=== PATIENT | female | born 1935 | race Asian ===

== ENCOUNTER 2017-06-06 22:21 | Emergency (ER) | payer MEDICARE, OTHER ==
[~2017-06-06] VITALS: Ht 149.9 cm; Wt 53.5 kg
[~2017-06-06 22:21] MED LIST: ENAL5TAB92; LANS15CA21; LEVO300T2; LORA5CHW6; METO50TA7; PRAVACHOL; [UNRECOGNIZED DRUG - OTHER]
[2017-06-06 22:35] VITALS: BP 175/80
[2017-06-06 23:06] LABS: Basophils # (auto) 0 uL; Basophils % (auto) 0.4 % (0.0-2.0); Eosinophils # (auto) 0 uL; Eosinophils % (auto) 0.3 % (0.0-7.0); Hematocrit 40.8 % (36.0-46.0); Hemoglobin 13.6 g/dL (12.2-16.2); Lymphocytes # (auto) 1.7 uL; Lymphocytes % (auto) 26.1 % (10.0-50.0); Mean Corpuscular Hemoglobin 32.6 pg (28.0-32.0); Mean Corpuscular Hgb Conc. 33.5 g/dL (32.0-36.0); Mean Corpuscular Volume 97.3 fL (80.0-100.0); Monocytes # (auto) 0.3 uL; Monocytes % (auto) 4.5 % (0.0-12.0); Neutrophils # (auto) 4.4 uL; Neutrophils % (auto) 68.7 % (37.0-80.0); Nucleated Red Blood Cells % 0.1 %; Platelet Count (auto) 211 10^3/uL (140-450); Red Blood Cells 4.19 10^6/uL (4.0-5.20); Red Cell Distribution Width 13.7 % (11.8-14.3); White Blood Cell 6.3 10^3/uL (4.4-10.8)
[2017-06-06 23:26] LABS: Albumin 4.1 g/dL (3.4-5.0); BUN/Creatinine Ratio 20.5; Magnesium 2.6 mg/dL (1.6-2.6); Potassium 4.1 mmol/L (3.5-5.1)
[2017-06-06 23:32] LABS: Bilirubin, Total 0.3 mg/dL (0.2-1.0); Total Protein 8.2 g/dL (6.4-8.2)
== END 2017-06-07 05:12 | disposition left against medical advice (07) ==
LOC: ER 22:47 → EDUNIT# 22:47 → ER 06-07 05:12
DX: R00.2 Palpitations (principal); Z53.21 Procedure and treatment not carried out due to patient leaving prior to being seen by health care provider
CPT/HCPCS: 36415; 71010; 80053; 83735; 83880; 84484; 85025; J7030

== ENCOUNTER 2017-06-07 08:40 | Inpatient (IN) | payer MEDICARE, OTHER ==
[~2017-06-07] VITALS: Ht 142.2 cm; Wt 53.6 kg
[2017-06-07 10:37] LABS: Basophils # (auto) 0 uL; Basophils % (auto) 0.4 % (0.0-2.0); Eosinophils # (auto) 0 uL; Eosinophils % (auto) 0.1 % (0.0-7.0); Hematocrit 40.4 % (36.0-46.0); Hemoglobin 13.5 g/dL (12.2-16.2); Lymphocytes # (auto) 1.5 uL; Lymphocytes % (auto) 21.7 % (10.0-50.0); Mean Corpuscular Hemoglobin 32.2 pg (28.0-32.0); Mean Corpuscular Hgb Conc. 33.4 g/dL (32.0-36.0); Mean Corpuscular Volume 96.4 fL (80.0-100.0); Monocytes # (auto) 0.5 uL; Monocytes % (auto) 6.9 % (0.0-12.0); Neutrophils # (auto) 4.9 uL; Neutrophils % (auto) 70.9 % (37.0-80.0); Nucleated Red Blood Cells % 0.1 %; Platelet Count (auto) 220 10^3/uL (140-450); Red Blood Cells 4.19 10^6/uL (4.0-5.20); Red Cell Distribution Width 13.6 % (11.8-14.3); White Blood Cell 6.8 10^3/uL (4.4-10.8)
[2017-06-07 10:58] LABS: Albumin 3.9 g/dL (3.4-5.0); Bilirubin, Total 0.3 mg/dL (0.2-1.0); Calcium 8.5 mg/dL (8.5-10.1); Magnesium 2.9 mg/dL (1.6-2.6); Total Protein 8.1 g/dL (6.4-8.2)
[2017-06-07] MEDS ORDERED: LACTULOSE 20Gm/30ML SOLN PO PRN (16:30)
[2017-06-07] MEDS ORDERED: ACETAMINOPHEN 500 MG TAB PO PRN (16:30)
[2017-06-07] MEDS ORDERED: ASPirin 81 mg TAB PO ONE (16:30)
[2017-06-07] MEDS ORDERED: PROMETHAZINE HCL 25 MG/ML 1ML IV PRN (16:30)
[2017-06-07] MEDS ORDERED: TEMAZEPAM 15 MG CAP PO PRN (16:30)
[2017-06-07] MEDS ORDERED: LORazepam 0.5 MG TAB PO PRN (16:30)
[2017-06-07] MEDS ORDERED: HYDROcodone-ACET 5/325MG TAB PO PRN (16:30)
[2017-06-07] MEDS ORDERED: NITROGLYCERIN 0.4 MG SL TAB SL PRN (16:30)
[2017-06-07] MEDS ORDERED: MORPHINE SULF INJ 2 MG/ML SYRINGE 1ML IV PRN ×2 (16:30)
[2017-06-07 17:02] LABS: INR 0.95 (0.9-1.15); Partial Thromboplastin Time 19.2 sec (22.64-33.71); Prothrombin Time 10.3 sec (9.37-12.3)
[2017-06-07] MEDS: SODIUM CHLORIDE 0.9% 1,000 ML IV SCH (17:03)
[2017-06-07] MEDS: ATORVASTATIN 20 MG TAB PO SCH (23:02)
[2017-06-07] MEDS: METOPROLOL TARTRATE 25 MG TAB PO SCH (23:03)
[2017-06-07 23:54] LABS: Urine Bacteria NONE SEEN /hpf (None Seen); Urine Blood 1+ /uL (Negative); Urine Specific Gravity 1.006 (1.001-1.035); Urine WBC 1 /hpf (0 - 5)
[2017-06-08 00:04] LABS: Alcohol, Urine < 3.0 mg/dL (0-5); Amphetamine Screen, Urine NEGATIVE (NEGATIVE); Barbiturate Scree,Urine NEGATIVE (NEGATIVE); Benzodiazephine Screen, Urine NEGATIVE (NEGATIVE); Cannabinoid Screen, Urine NEGATIVE (NEGATIVE); Cocaine Screen, Urine NEGATIVE (NEGATIVE); Opiate Scree,Urine NEGATIVE (NEGATIVE); Phencyclidine Screen, Urine NEGATIVE (NEGATIVE)
[2017-06-08] MEDS: SODIUM CHLORIDE 0.9% 1,000 ML IV SCH ×2 (06:04→17:43)
[2017-06-08] MEDS ORDERED: NITROGLYCERIN 0.2MG/HR TOPICAL PATCH TD SCH (10:00)
[2017-06-08] MEDS: ASPirin 81 mg TAB PO SCH (10:05)
[2017-06-08] MEDS: ENOXAPARIN SOD 40 MG/0.4 ML SYRINGE SC SCH (10:05)
[2017-06-08] MEDS: PANTOPRAZOLE 40 MG TAB PO SCH (10:05)
[2017-06-08] MEDS: METOPROLOL TARTRATE 25 MG TAB PO SCH (10:05)
[2017-06-08 14:50] VITALS: BP 121/74
[2017-06-08 15:00] VITALS: BP 98/49
[2017-06-08 17:00] VITALS: BP 129/73
[2017-06-08] MEDS: ATORVASTATIN 20 MG TAB PO SCH (21:35)
[2017-06-08 22:09] VITALS: BP_SYST 117; BP_SYST 98; BP_DIAS 58; BP_DIAS 65
[2017-06-09] VITALS (7 sets, daily range): BP systolic 126–152; BP diastolic 68–85
[2017-06-09] MEDS: SODIUM CHLORIDE 0.9% 1,000 ML IV SCH (08:29)
[2017-06-09] MEDS ORDERED: METOPROLOL SUCCINATE XL 50 MG TAB PO SCH (10:00)
[2017-06-09] MEDS: ASPirin 81 mg TAB PO SCH (10:12)
[2017-06-09] MEDS: PANTOPRAZOLE 40 MG TAB PO SCH (10:12)
[2017-06-09] MEDS: ENOXAPARIN SOD 40 MG/0.4 ML SYRINGE SC SCH (10:13)
[2017-06-09] MEDS ORDERED: ALPRAZolam 0.25 MG TAB PO PRN (10:15)
[2017-06-09] MEDS ORDERED: ALPRAZolam 0.25 MG TAB PO ONE (10:15)
== END 2017-06-09 17:30 | disposition home or self-care (01) | DRG 311 ==
LOC: ER 08:40 → TELE 08:41 → EDUNIT# 08:41 → TELE-EAST 06-08 14:16
PROVIDERS: ADMIT Family Medicine; ATTEND Internal Medicine
DX: I24.9 Acute ischemic heart disease, unspecified (principal); E03.9 Hypothyroidism, unspecified; I10 Essential (primary) hypertension; F41.9 Anxiety disorder, unspecified; M81.0 Age-related osteoporosis without current pathological fracture; Z82.49 Family history of ischemic heart disease and other diseases of the circulatory system; Z90.710 Acquired absence of both cervix and uterus; Z79.899 Other long term (current) drug therapy
CPT/HCPCS: 36415; 71010; 80053; 80061; 80307; 81001; 82550; 83735; 83880; 84443; 84484; 85025; 85379; 85610; 85652; 85730; 86141; 93005; 94761; 96360

== ENCOUNTER 2022-01-31 19:27 | Emergency (ER) | payer MEDICARE, OTHER ==
[~2022-01-31 19:27] MED LIST changes: +ASPI81CH43 GT; +ENAL2.5T11 GT; +ENAL5TAB10; -ENAL5TAB92; -LANS15CA21; +LANS15CA37; +LEVO25TA6 PO; +METO-289 PO; +METO-6; -METO50TA7; +MULTCHW OR; +POM; +PRAV20TA3 PO
[2022-02-01] MEDS ORDERED: ACET-1158 PO (11:47)
[2022-02-01] MEDS ORDERED: SULF800T7 PO (11:47)
== END 2022-01-31 19:55 | disposition left against medical advice (07) ==
LOC: ER 19:27
DX: R39.198 Other difficulties with micturition (principal); Z53.21 Procedure and treatment not carried out due to patient leaving prior to being seen by health care provider

== ENCOUNTER 2022-02-01 10:25 | Emergency (ER) | payer MEDICARE, OTHER ==
[~2022-02-01] VITALS: Ht 142.2 cm; Wt 55.0 kg
[2022-02-01 11:07] LABS: Urine Bacteria MANY /hpf (None Seen); Urine Blood 3+ /uL (Negative); Urine Mucus FEW (None Seen); Urine Specific Gravity 1.019 (1.001-1.035); Urine WBC 739 /hpf (0 - 5); Urine WBC Clumps PRESENT /hpf (None Seen)
[2022-02-01 11:17] LABS: Basophils # (auto) 0.1 10 ^3/uL (0-0.2); Basophils % (auto) 0.5 % (0.0-2.0); Eosinophils # (auto) 0 10 ^3/uL (0-0.8); Eosinophils % (auto) 0.1 % (0.0-7.0); Hematocrit 37.1 % (36.0-46.0); Hemoglobin 12.2 g/dL (12.2-16.2); Lymphocytes # (auto) 1.7 10 ^3/uL (0.4-5.4); Lymphocytes % (auto) 15.3 % (10.0-50.0); Mean Corpuscular Hemoglobin 32.1 pg (28.0-32.0); Mean Corpuscular Hgb Conc. 32.9 g/dL (32.0-36.0); Mean Corpuscular Volume 97.5 fL (80.0-100.0); Monocytes # (auto) 0.7 10 ^3/uL (0-1.3); Monocytes % (auto) 5.8 % (0.0-12.0); Neutrophils # (auto) 8.8 10 ^3/uL (1.6-8.6); Neutrophils % (auto) 78.3 % (37.0-80.0); Red Blood Cells 3.81 10^6/uL (4.0-5.20); Red Cell Distribution Width 13.3 % (11.8-14.3); White Blood Cell 11.2 10^3/uL (4.4-10.8)
[2022-02-01 11:27] VITALS: BP 161/70
[2022-02-01] MEDS ORDERED: cefTRIAXone 1GM/50ML D5W 50 ML IV ONE (11:30)
[2022-02-01] MEDS ORDERED: ACET-1158 PO (11:47)
[2022-02-01] MEDS ORDERED: SULF800T7 PO (11:47)
[2022-02-01 11:49] LABS: Albumin 3.5 g/dL (3.4-5.0); Calcium 8.7 mg/dL (8.5-10.1)
[2022-02-01 11:52] LABS: BUN/Creatinine Ratio 23.9; Bilirubin, Total 0.6 mg/dL (0.2-1.0); Total Protein 7.5 g/dL (6.4-8.2)
== END 2022-02-01 12:40 | disposition home or self-care (01) ==
LOC: ER 10:25
DX: N39.0 Urinary tract infection, site not specified (principal); I10 Essential (primary) hypertension; E03.9 Hypothyroidism, unspecified; Z90.710 Acquired absence of both cervix and uterus; Z79.82 Long term (current) use of aspirin; Z79.899 Other long term (current) drug therapy
CPT/HCPCS: 36415; 80053; 81001; 85025; 96365; 99284; J0696

== ENCOUNTER 2023-05-15 11:01 | Emergency (ER) | payer MEDICARE, OTHER ==
[~2023-05-15] VITALS: Ht 142.2 cm; Wt 54.7 kg
[~2023-05-15 11:01] MED LIST changes: +ACET500T58 PO; -ENAL5TAB10; +ENAL5TAB22; +SULF800T23 PO
[2023-05-15 14:51] LABS: Basophils # (auto) 0 10 ^3/uL (0-0.2); Basophils % (auto) 0.8 % (0.0-2.0); Eosinophils # (auto) 0 10 ^3/uL (0-0.8); Eosinophils % (auto) 0.2 % (0.0-7.0); Hematocrit 41.1 % (36.0-46.0); Hemoglobin 13.6 g/dL (12.2-16.2); Lymphocytes # (auto) 1.4 10 ^3/uL (0.4-5.4); Lymphocytes % (auto) 23.5 % (10.0-50.0); Mean Corpuscular Hemoglobin 32.1 pg (28.0-32.0); Mean Corpuscular Hgb Conc. 33.1 g/dL (32.0-36.0); Mean Corpuscular Volume 96.7 fL (80.0-100.0); Monocytes # (auto) 0.5 10 ^3/uL (0-1.3); Monocytes % (auto) 8.9 % (0.0-12.0); Neutrophils % (auto) 66.6 % (37.0-80.0); Nucleated Red Blood Cells % 0.1 %; Red Blood Cells 4.25 10^6/uL (4.0-5.20); Red Cell Distribution Width 12.9 % (11.8-14.3)
[2023-05-15 14:59] LABS: Anion Gap 8 (5-15); Carbon Dioxide 23 mmol/L (20-30); Chloride 107 mmol/L (98-107); Potassium 4.2 mmol/L (3.5-5.1); Sodium 138 mmol/L (136-145)
[2023-05-15 15:00] LABS: Calcium 8.8 mg/dL (8.7-10.4)
[2023-05-15 15:05] LABS: BUN/Creatinine Ratio 11.6 (10.0-20.0); Blood Urea Nitrogen 8 mg/dL (9-23); Glucose 117 mg/dL (74-106)
[2023-05-15] MEDS ORDERED: HYDR25CA PO (15:05)
[2023-05-15 15:06] LABS: Magnesium 2.3 mg/dL (1.6-2.6)
[2023-05-15 16:03] VITALS: BP 144/76; PULSE 86; RESP 18; TEMP 97.8; O2SAT 98
== END 2023-05-15 16:05 | disposition home or self-care (01) ==
LOC: ER 11:01
DX: F41.8 Other specified anxiety disorders (principal); I10 Essential (primary) hypertension; E03.9 Hypothyroidism, unspecified; Z90.710 Acquired absence of both cervix and uterus; Z79.82 Long term (current) use of aspirin; Z79.899 Other long term (current) drug therapy
CPT/HCPCS: 36415; 80048; 83735; 85025; 93005

== ENCOUNTER 2023-05-24 17:57 | Emergency (ER) | payer MEDICARE, OTHER ==
[~2023-05-24 17:57] MED LIST changes: +HYDR25CA PO
[2023-05-30] MEDS ORDERED: BUSP5TAB51 PO (10:45)
[2023-05-30] MEDS ORDERED: METO25TA93 PO (10:45)
== END 2023-05-24 19:20 | disposition left against medical advice (07) ==
LOC: ER 17:57
DX: R05.9 Cough, unspecified (principal); Z53.21 Procedure and treatment not carried out due to patient leaving prior to being seen by health care provider

== ENCOUNTER 2023-05-25 16:16 | Emergency (ER) | payer MEDICARE, OTHER ==
[~2023-05-25] VITALS: Ht 142.2 cm; Wt 55.8 kg
[2023-05-25 17:30] LABS: Basophils # (auto) 0.1 10 ^3/uL (0-0.2); Basophils % (auto) 0.8 % (0.0-2.0); Eosinophils # (auto) 0.1 10 ^3/uL (0-0.8); Eosinophils % (auto) 1.1 % (0.0-7.0); Hematocrit 41.1 % (36.0-46.0); Hemoglobin 13.4 g/dL (12.2-16.2); Lymphocytes % (auto) 27.7 % (10.0-50.0); Mean Corpuscular Hemoglobin 31.8 pg (28.0-32.0); Mean Corpuscular Hgb Conc. 32.6 g/dL (32.0-36.0); Mean Corpuscular Volume 97.8 fL (80.0-100.0); Monocytes # (auto) 0.5 10 ^3/uL (0-1.3); Monocytes % (auto) 6.5 % (0.0-12.0); Neutrophils # (auto) 4.6 10 ^3/uL (1.6-8.6); Neutrophils % (auto) 63.9 % (37.0-80.0); Nucleated Red Blood Cells % 0.1 %; Red Cell Distribution Width 13.6 % (11.8-14.3); White Blood Cell 7.1 10^3/uL (4.4-10.8)
[2023-05-25 17:56] LABS: Alanine Aminotransferase 47 U/L (7-40); Albumin 4.4 g/dL (3.2-4.8); Alkaline Phosphatase 55 U/L (46-116); Anion Gap 9 (5-15); Aspartate Aminotransferase 30 U/L (13-40); BUN/Creatinine Ratio 19.4 (10.0-20.0); Blood Urea Nitrogen 14 mg/dL (9-23); Calcium 9.1 mg/dL (8.5-10.1); Carbon Dioxide 21 mmol/L (20-30); Chloride 103 mmol/L (98-107); Glucose 113 mg/dL (74-106); Potassium 4.1 mmol/L (3.5-5.1); Sodium 133 mmol/L (136-145)
[2023-05-25 17:57] LABS: Bilirubin, Total 0.3 mg/dL (0.2-1.0); Total Protein 7.4 g/dL (5.7-8.2)
[2023-05-25 18:10] LABS: Lipase 61 U/L (12-53)
[2023-05-25 19:22] LABS: Urine Bacteria FEW /hpf (None Seen); Urine Blood 1+ /uL (Negative); Urine Clarity Clear (Clear); Urine Color Colorless (Yellow); Urine Protein, UAD Negative (Negative); Urine Specific Gravity 1.006 (1.001-1.035); Urine Urobilinogen Normal (Negative); Urine WBC 1 /hpf (0 - 5); Urine pH 5.5 (5.0-8.0)
[2023-05-25 22:48] LABS: COVID19 ANTIGEN SOFIA FIA NEGATIVE (NEGATIVE)
[2023-05-25 22:49] LABS: Rapid Influenza A Negative (Negative); Rapid Influenza B Negative (Negative)
[2023-05-26 00:17] VITALS: BP 158/62; PULSE 70; RESP 17; TEMP 98; O2SAT 97
[2023-05-26] MEDS ORDERED: ASPirin 325 MG TAB ONE (12:40)
[2023-05-26] MEDS ORDERED: InsuLIN REG 1unit/0.01ml Soln (100units/ml) ONE (21:02)
[2023-05-30] MEDS ORDERED: METO25TA93 PO (10:45)
[2023-05-30] MEDS ORDERED: BUSP5TAB51 PO (10:45)
== END 2023-05-26 00:20 | disposition home or self-care (01) ==
LOC: ER 16:16
DX: F32.A Depression, unspecified (principal); I10 Essential (primary) hypertension; E03.9 Hypothyroidism, unspecified; Z90.710 Acquired absence of both cervix and uterus; Z79.82 Long term (current) use of aspirin; Z79.899 Other long term (current) drug therapy
CPT/HCPCS: 36415; 71045; 80053; 81001; 83690; 84484; 85025; 87426; 87804; 93005; J1815

== ENCOUNTER 2023-05-26 09:24 | Inpatient (IN) | payer MEDICARE, OTHER ==
[~2023-05-26] VITALS: Ht 142.2 cm; Wt 60.3 kg
[2023-05-26 09:43] LABS: Basophils # (auto) 0 10 ^3/uL (0-0.2); Basophils % (auto) 0.3 % (0.0-2.0); Eosinophils # (auto) 0.1 10 ^3/uL (0-0.8); Eosinophils % (auto) 1.4 % (0.0-7.0); Hematocrit 40.7 % (36.0-46.0); Hemoglobin 13.4 g/dL (12.2-16.2); Lymphocytes # (auto) 1.7 10 ^3/uL (0.4-5.4); Mean Corpuscular Hemoglobin 32.2 pg (28.0-32.0); Mean Corpuscular Hgb Conc. 32.8 g/dL (32.0-36.0); Monocytes # (auto) 0.4 10 ^3/uL (0-1.3); Monocytes % (auto) 6.3 % (0.0-12.0); Neutrophils # (auto) 4.6 10 ^3/uL (1.6-8.6); Nucleated Red Blood Cells % 0.1 %; Red Blood Cells 4.16 10^6/uL (4.0-5.20); Red Cell Distribution Width 13.3 % (11.8-14.3); White Blood Cell 6.8 10^3/uL (4.4-10.8)
[2023-05-26 10:08] LABS: INR 0.97 (0.9-1.15); Partial Thromboplastin Time 22.5 SEC (24.5-34.5); Prothrombin Time 10.2 sec (9.3-11.8)
[2023-05-26 10:33] LABS: Alanine Aminotransferase 49 U/L (7-40); Albumin 4.4 g/dL (3.2-4.8); Alkaline Phosphatase 56 U/L (46-116); Anion Gap 7 (5-15); Aspartate Aminotransferase 27 U/L (13-40); BUN/Creatinine Ratio 28.8 (10.0-20.0); Blood Urea Nitrogen 21 mg/dL (9-23); Carbon Dioxide 22 mmol/L (20-30); Chloride 106 mmol/L (98-107); Glucose 145 mg/dL (74-106); Magnesium 2.3 mg/dL (1.6-2.6); Potassium 4.1 mmol/L (3.5-5.1); Sodium 135 mmol/L (136-145)
[2023-05-26 10:34] LABS: Bilirubin, Total 0.3 mg/dL (0.2-1.0); Total Protein 7.2 g/dL (5.7-8.2)
[2023-05-26] MEDS ORDERED: ASPirin 325 MG TAB PO ONE (11:45)
[2023-05-26] MEDS ORDERED: ONDANSETRON HCL 4 MG/2 ML VIAL IV PRN (12:30)
[2023-05-26] MEDS ORDERED: MORPHINE SULFATE INJ 2 MG/ml SYRG IV PRN (12:30)
[2023-05-26] MEDS ORDERED: ACETAMINOPHEN 325 MG TAB PO PRN (12:30)
[2023-05-26] MEDS ORDERED: NITROGLYCERIN 0.4 MG SL TAB SL PRN (12:30)
[2023-05-26] MEDS ORDERED: DEXTROSE (50%) 50ML SYRG IV PRN (12:30)
[2023-05-26 13:14] LABS: Triglycerides 105 mg/dL (< 150)
[2023-05-26 13:15] LABS: LDL Cholesterol 139 mg/dL (< 100)
[2023-05-26 13:16] LABS: Cholesterol 198 mg/dL (< 200); HDL Cholesterol 58 mg/dL (40-59)
[2023-05-26 19:30] VITALS: PULSE 69; RESP 16; O2SAT 95
[2023-05-26] MEDS: SODIUM CHLORIDE 0.9% 1,000 ML IV SCH (20:23)
[2023-05-26] MEDS: ACCU-CHEK COMFORT CURVE STRIP VI SCH ×2 (20:23→22:20)
[2023-05-26] MEDS: InsuLIN REG 1unit/0.01ml Soln (100units/ml) SC SCH ×2 (21:04→22:00)
[2023-05-27] VITALS (8 sets, daily range): BP systolic 115–144; BP diastolic 48–66; PULSE 60–76; RESP 14–18; TEMP 97.8–99.3; O2SAT 95–99
[2023-05-27] MEDS: SODIUM CHLORIDE 0.9% 1,000 ML IV SCH ×2 (05:10→21:50)
[2023-05-27 06:11] LABS: Basophils # (auto) 0 10 ^3/uL (0-0.2); Basophils % (auto) 0.4 % (0.0-2.0); Eosinophils # (auto) 0.1 10 ^3/uL (0-0.8); Eosinophils % (auto) 2.4 % (0.0-7.0); Hematocrit 36.2 % (36.0-46.0); Hemoglobin 12.1 g/dL (12.2-16.2); Lymphocytes # (auto) 1.6 10 ^3/uL (0.4-5.4); Lymphocytes % (auto) 26.1 % (10.0-50.0); Mean Corpuscular Hemoglobin 32.9 pg (28.0-32.0); Mean Corpuscular Hgb Conc. 33.5 g/dL (32.0-36.0); Monocytes # (auto) 0.5 10 ^3/uL (0-1.3); Monocytes % (auto) 8.9 % (0.0-12.0); Neutrophils # (auto) 3.7 10 ^3/uL (1.6-8.6); Neutrophils % (auto) 62.2 % (37.0-80.0); Nucleated Red Blood Cells % 0.1 %; Red Blood Cells 3.69 10^6/uL (4.0-5.20); Red Cell Distribution Width 13.8 % (11.8-14.3)
[2023-05-27 06:25] LABS: Alanine Aminotransferase 42 U/L (7-40); Alkaline Phosphatase 43 U/L (46-116); Anion Gap 7 (5-15); BUN/Creatinine Ratio 18.6 (10.0-20.0); Blood Urea Nitrogen 13 mg/dL (9-23); Calcium 8.1 mg/dL (8.7-10.4); Carbon Dioxide 22 mmol/L (20-30); Chloride 111 mmol/L (98-107); Glucose 96 mg/dL (74-106); Potassium 4.1 mmol/L (3.5-5.1); Sodium 140 mmol/L (136-145)
[2023-05-27 06:26] LABS: Albumin 3.5 g/dL (3.2-4.8); Aspartate Aminotransferase 27 U/L (13-40)
[2023-05-27 06:27] LABS: Bilirubin, Total 0.6 mg/dL (0.2-1.0)
[2023-05-27] MEDS: InsuLIN REG 1unit/0.01ml Soln (100units/ml) SC SCH ×4 (06:29→22:00)
[2023-05-27] MEDS: ACCU-CHEK COMFORT CURVE STRIP VI SCH ×4 (06:29→22:00)
[2023-05-27] MEDS: ENALAPRIL MALEATE 2.5 MG TAB PO SCH (10:33)
[2023-05-27] MEDS: ENOXAPARIN SOD 30 MG/0.3 ML SYRINGE SC SCH (10:34)
[2023-05-27] MEDS: METOPROLOL SUCCINATE XL 50 MG TAB PO SCH (10:35)
[2023-05-27] MEDS: PRAVASTATIN SODIUM 20 MG TAB PO SCH (10:35)
[2023-05-27] MEDS ORDERED: LEVOTHYROXINE SODIUM 25 MCG TAB ONE (10:38)
[2023-05-27] MEDS: ASPirin 81 mg TAB PO SCH (10:38)
[2023-05-27] MEDS: LEVOTHYROXINE SODIUM 25 MCG TAB PO SCH (10:39)
[2023-05-27] MEDS ORDERED: PANTOPRAZOLE 40 MG/10 ML VIAL INJ IV ONE (13:30)
[2023-05-27] MEDS ORDERED: LACTULOSE 20Gm/30ML SOLN PO ONE (13:30)
[2023-05-28 05:00] VITALS: BP 124/64; PULSE 69; RESP 16; TEMP 98; O2SAT 100
[2023-05-28] MEDS: ACCU-CHEK COMFORT CURVE STRIP VI SCH ×4 (06:51→22:15)
[2023-05-28] MEDS: InsuLIN REG 1unit/0.01ml Soln (100units/ml) SC SCH ×4 (06:53→22:00)
[2023-05-28 08:00] VITALS: PULSE 65; RESP 17; O2SAT 97
[2023-05-28] MEDS ORDERED: ALPRAZolam 0.5 MG TAB PO ONE (10:45)
[2023-05-28 11:09] VITALS: BP 135/42; PULSE 64; RESP 17; TEMP 98.7; O2SAT 97
[2023-05-28] MEDS: ENOXAPARIN SOD 30 MG/0.3 ML SYRINGE SC SCH (11:19)
[2023-05-28] MEDS: PANTOPRAZOLE 40 MG/10 ML VIAL INJ IV SCH (11:19)
[2023-05-28] MEDS: METOPROLOL SUCCINATE XL 50 MG TAB PO SCH (11:20)
[2023-05-28] MEDS: LEVOTHYROXINE SODIUM 25 MCG TAB PO SCH (11:20)
[2023-05-28] MEDS: ASPirin 81 mg TAB PO SCH (11:21)
[2023-05-28] MEDS: PRAVASTATIN SODIUM 20 MG TAB PO SCH (11:21)
[2023-05-28] MEDS: ENALAPRIL MALEATE 2.5 MG TAB PO SCH (11:21)
[2023-05-28 13:26] VITALS: BP 116/45; PULSE 65; RESP 17; TEMP 97.7; O2SAT 96
[2023-05-28] MEDS: ALPRAZolam 0.5 MG TAB PO SCH ×2 (14:00→22:00)
[2023-05-28] MEDS: SODIUM CHLORIDE 0.9% 1,000 ML IV SCH (14:44)
[2023-05-28 16:48] VITALS: BP 104/37; PULSE 79; RESP 17; TEMP 98.4; O2SAT 98
[2023-05-28 20:00] VITALS: PULSE 68; PULSE 72; RESP 18
[2023-05-29 01:41] VITALS: BP 100/58; PULSE 80; RESP 18; TEMP 98.9; O2SAT 95
[2023-05-29 05:00] VITALS: BP 120/62; PULSE 80; RESP 17; TEMP 98.9; O2SAT 98
[2023-05-29] MEDS: ALPRAZolam 0.5 MG TAB PO SCH ×3 (05:23→21:52)
[2023-05-29] MEDS: SODIUM CHLORIDE 0.9% 1,000 ML IV SCH (06:48)
[2023-05-29] MEDS: ACCU-CHEK COMFORT CURVE STRIP VI SCH ×4 (06:51→21:51)
[2023-05-29] MEDS: InsuLIN REG 1unit/0.01ml Soln (100units/ml) SC SCH ×4 (06:52→21:51)
[2023-05-29 08:00] VITALS: BP 129/65; PULSE 86; PULSE 87; RESP 16; TEMP 98.1; O2SAT 97
[2023-05-29] MEDS ORDERED: OMNIPAQUE 12mg/ml 500ml ORAL SOLUTION PO ONE (09:04)
[2023-05-29 09:21] LABS: Hepatitis B Surface Antigen Negative (Negative)
[2023-05-29] MEDS: ENOXAPARIN SOD 40 MG/0.4 ML SYRINGE SC SCH (10:54)
[2023-05-29] MEDS: PANTOPRAZOLE 40 MG/10 ML VIAL INJ IV SCH (10:54)
[2023-05-29] MEDS: LEVOTHYROXINE SODIUM 25 MCG TAB PO SCH (10:55)
[2023-05-29] MEDS: ASPirin 81 mg TAB PO SCH (10:55)
[2023-05-29] MEDS: PRAVASTATIN SODIUM 20 MG TAB PO SCH (10:55)
[2023-05-29] MEDS: METOPROLOL SUCCINATE XL 50 MG TAB PO SCH (10:56)
[2023-05-29] MEDS: ENALAPRIL MALEATE 2.5 MG TAB PO SCH (10:57)
[2023-05-29 11:18] LABS: Hepatitis C Antibody Positive (Negative)
[2023-05-29 16:00] VITALS: BP 107/56; PULSE 96; RESP 16; TEMP 98.2; O2SAT 96
[2023-05-29 20:00] VITALS: PULSE 60; PULSE 76; RESP 18; O2SAT 95
[2023-05-29] MEDS: busPIRone HCL 10 MG TAB PO SCH (21:52)
[2023-05-29 22:00] VITALS: BP 128/44; PULSE 60; RESP 18; TEMP 98.3; O2SAT 90
[2023-05-30] MEDS: SODIUM CHLORIDE 0.9% 1,000 ML IV SCH (00:47)
[2023-05-30 05:00] VITALS: BP 127/43; PULSE 64; RESP 18; TEMP 98.3; O2SAT 95
[2023-05-30 05:30] VITALS: BP 127/43; PULSE 64; RESP 19; TEMP 98.3; O2SAT 95
[2023-05-30] MEDS: ALPRAZolam 0.5 MG TAB PO SCH ×2 (06:00→14:00)
[2023-05-30 06:30] VITALS: BP 152/79; PULSE 87; RESP 18; TEMP 98.7; O2SAT 99
[2023-05-30] MEDS: InsuLIN REG 1unit/0.01ml Soln (100units/ml) SC SCH ×2 (07:00→12:26)
[2023-05-30] MEDS: ACCU-CHEK COMFORT CURVE STRIP VI SCH ×2 (07:03→12:26)
[2023-05-30 08:00] VITALS: BP 123/35; PULSE 61; RESP 20; TEMP 98.8; O2SAT 97
[2023-05-30] MEDS: PANTOPRAZOLE 40 MG/10 ML VIAL INJ IV SCH ×2 (10:26→10:50)
[2023-05-30] MEDS: ENOXAPARIN SOD 40 MG/0.4 ML SYRINGE SC SCH (10:28)
[2023-05-30] MEDS: LEVOTHYROXINE SODIUM 25 MCG TAB PO SCH (10:29)
[2023-05-30] MEDS: ASPirin 81 mg TAB PO SCH (10:29)
[2023-05-30] MEDS: PRAVASTATIN SODIUM 20 MG TAB PO SCH (10:29)
[2023-05-30] MEDS: METOPROLOL SUCCINATE XL 50 MG TAB PO SCH (10:30)
[2023-05-30] MEDS: busPIRone HCL 10 MG TAB PO SCH (10:30)
[2023-05-30] MEDS: ENALAPRIL MALEATE 2.5 MG TAB PO SCH (10:31)
[2023-05-30] MEDS ORDERED: BUSP5TAB51 PO ×2 (10:45)
[2023-05-30] MEDS ORDERED: METO25TA93 PO ×2 (10:45)
[2023-05-30 12:00] VITALS: BP 113/47; PULSE 67; RESP 20; TEMP 98.4; O2SAT 98
[2023-05-30 12:47] VITALS: PULSE 67
== END 2023-05-30 14:04 | disposition home or self-care (01) | DRG 282 ==
LOC: ER 09:24 → TELE 12:25 → TELE-EAST 22:50
PROVIDERS: ADMIT Nurse Practitioner Family; ATTEND Family Medicine
DX: R00.2 Palpitations (principal); I21.A1 Myocardial infarction type 2; F41.9 Anxiety disorder, unspecified; R63.0 Anorexia; I10 Essential (primary) hypertension; E11.9 Type 2 diabetes mellitus without complications; E03.9 Hypothyroidism, unspecified; E78.00 Pure hypercholesterolemia, unspecified; F32.A Depression, unspecified; F41.1 Generalized anxiety disorder; F43.20 Adjustment disorder, unspecified; K21.9 Gastro-esophageal reflux disease without esophagitis; K59.00 Constipation, unspecified; Z79.899 Other long term (current) drug therapy; Z82.49 Family history of ischemic heart disease and other diseases of the circulatory system; Z83.3 Family history of diabetes mellitus; Z87.440 Personal history of urinary (tract) infections; Z90.710 Acquired absence of both cervix and uterus; Z91.199 Patient's noncompliance with other medical treatment and regimen due to unspecified reason
CPT/HCPCS: 36415; 71045; 74176; 80053; 80061; 81001; 82962; 83036; 83690; 83735; 83880; 84443; 84484; 85025; 85379; 85610; 85730; 86803; 87340; 87426; 87804; 93005; 93306; 99291; C9113; G0378; J1815

== ENCOUNTER 2023-05-31 11:48 | Emergency (ER) | payer MEDICARE, OTHER ==
[~2023-05-31] VITALS: Ht 142.2 cm; Wt 55.7 kg
[~2023-05-31 11:48] MED LIST changes: +BUSP5TAB51 PO; +METO25TA93 PO
[2023-05-31 14:43] VITALS: BP 148/65; RESP 20; O2SAT 100
[2023-05-31 15:57] LABS: Basophils # (auto) 0 10 ^3/uL (0-0.2); Basophils % (auto) 0.3 % (0.0-2.0); Eosinophils # (auto) 0.1 10 ^3/uL (0-0.8); Eosinophils % (auto) 0.8 % (0.0-7.0); Hematocrit 40.7 % (36.0-46.0); Hemoglobin 13.2 g/dL (12.2-16.2); Lymphocytes # (auto) 1.9 10 ^3/uL (0.4-5.4); Lymphocytes % (auto) 27.7 % (10.0-50.0); Mean Corpuscular Hemoglobin 32.4 pg (28.0-32.0); Mean Corpuscular Hgb Conc. 32.4 g/dL (32.0-36.0); Mean Corpuscular Volume 100.1 fL (80.0-100.0); Monocytes # (auto) 0.4 10 ^3/uL (0-1.3); Monocytes % (auto) 6.4 % (0.0-12.0); Neutrophils # (auto) 4.5 10 ^3/uL (1.6-8.6); Neutrophils % (auto) 64.8 % (37.0-80.0); Nucleated Red Blood Cells % 0.1 %; Red Blood Cells 4.06 10^6/uL (4.0-5.20); Red Cell Distribution Width 14.7 % (11.8-14.3); White Blood Cell 6.9 10^3/uL (4.4-10.8)
[2023-05-31 16:28] LABS: Alanine Aminotransferase 49 U/L (7-40); Albumin 4.3 g/dL (3.2-4.8); Alkaline Phosphatase 58 U/L (46-116); Anion Gap 7 (5-15); Aspartate Aminotransferase 27 U/L (13-40); BUN/Creatinine Ratio 31.4 (10.0-20.0); Bilirubin, Total 0.3 mg/dL (0.2-1.0); Blood Urea Nitrogen 22 mg/dL (9-23); Calcium 8.9 mg/dL (8.7-10.4); Carbon Dioxide 23 mmol/L (20-30); Chloride 106 mmol/L (98-107); Glucose 129 mg/dL (74-106); Potassium 4.4 mmol/L (3.5-5.1); Sodium 136 mmol/L (136-145); Total Protein 6.9 g/dL (5.7-8.2)
[2023-05-31] MEDS: ASPirin 325 MG TAB PO ONE ×2 (16:52→16:53)
[2023-05-31 17:49] VITALS: PULSE 83
== END 2023-05-31 16:56 | disposition left against medical advice (07) ==
LOC: ER 11:48
DX: R00.2 Palpitations (principal); F41.1 Generalized anxiety disorder; E11.9 Type 2 diabetes mellitus without complications; I10 Essential (primary) hypertension; Z90.710 Acquired absence of both cervix and uterus
CPT/HCPCS: 36415; 80053; 84484; 85025; 93005

== ENCOUNTER 2023-06-02 13:49 | Emergency (ER) | payer MEDICARE, OTHER ==
[~2023-06-02] VITALS: Ht 142.2 cm; Wt 54.3 kg
[2023-06-02 14:37] VITALS: BP 142/87; PULSE 87; RESP 17; TEMP 97.7; O2SAT 97
== END 2023-06-02 14:39 | disposition home or self-care (01) ==
LOC: ER 13:49
DX: F41.1 Generalized anxiety disorder (principal); R00.2 Palpitations; E11.9 Type 2 diabetes mellitus without complications; I10 Essential (primary) hypertension; Z90.710 Acquired absence of both cervix and uterus